=== PATIENT | female | born 1940 | race Caucasian/White ===

== ENCOUNTER → 2016-09-12 | Outpatient (CLI) | payer MEDICARE ==
[~2016-09-12] MED LIST: HYDR-3240 PO; LEVO500T8 PO; ONDA4TAB7 PO
== END | disposition home or self-care (01) ==
LOC: CFH 10:01
PROVIDERS: ATTEND Registered Nurse
DX: M51.36 Other intervertebral disc degeneration, lumbar region (principal); M51.26 Other intervertebral disc displacement, lumbar region; M48.07 Spinal stenosis, lumbosacral region; M85.88 Other specified disorders of bone density and structure, other site; M62.58 Muscle wasting and atrophy, not elsewhere classified, other site; M51.05 Intervertebral disc disorders with myelopathy, thoracolumbar region; M16.0 Bilateral primary osteoarthritis of hip; Q76.49 Other congenital malformations of spine, not associated with scoliosis; I70.0 Atherosclerosis of aorta; K57.30 Diverticulosis of large intestine without perforation or abscess without bleeding
CPT/HCPCS: 72131; 72192

== ENCOUNTER → 2017-01-20 | Outpatient (CLI) | payer MEDICARE | END | disposition home or self-care (01) | LOC: CFH 10:18 | PROVIDERS: ATTEND Internal Medicine Cardiovascular Disease | DX: I07.1 Rheumatic tricuspid insufficiency (principal); Z95.0 Presence of cardiac pacemaker | CPT/HCPCS: 93306 ==

== ENCOUNTER → 2018-10-19 | Outpatient (CLI) | payer MEDICARE ==
[2018-10-19 13:40] LABS: ALANINE AMINOTRANSFERASE 22 U/L (12-78); ALBUMIN 4.1 g/dL (3.4-5.0); ALKALINE PHOSPHATASE 84 U/L (45-117); BILIRUBIN,TOTAL 0.4 mg/dL (0.2-1.0); CHOLESTEROL, TOTAL 171 mg/dL (140-239); HDL CHOL % 50 % (28-40); HDL CHOLESTEROL (DIRECT) 86 mg/dL (40-60); LDL CHOLESTEROL,CALCULATED 65 mg/dL (54-169); LDL/HDL RATIO 0.8 (0.5-3.0); TOTAL PROTEIN 8.5 g/dL (6.4-8.2); TRIGLYCERIDES 99 mg/dL (50-200); VLDL CHOLESTEROL 20 mg/dL (0-25)
[2018-10-19 13:51] LABS: BILIRUBIN, DIRECT < 0.1 mg/dL (0.1-0.2); BILIRUBIN,INDIRECT 0.3 mg/dL (0.0-2.0)
== END | disposition home or self-care (01) ==
LOC: CFH 10:49
PROVIDERS: ATTEND Internal Medicine Cardiovascular Disease
DX: I10 Essential (primary) hypertension (principal); E78.2 Mixed hyperlipidemia
CPT/HCPCS: 36415; 80061; 80076